=== PATIENT | male | born 1995 | race Two or more races ===

== ENCOUNTER → 2024-05-16 | Outpatient (CLI) | payer BC, SELFPAY ==
--- NOTE | 2024-05-16 | XR_ITS ---
Examination: Breast ultrasound, unilateral, right Date and time of exam: May 08, 2024 1210 hours INDICATIONS: Patient states retroareolar lump 2 years tendon attaches Technique: Real-time gatica scale ultrasonographic imaging performed right breast including all 4 quadrants as well as nipple retroareolar and axillary region. Findings: Probably benign retroareolar glandular tissue IMPRESSION: BI-RADS Category 3: Probably benign findings One additional 3-6 month bilateral breast sonography follow-up recommended
== END | disposition home or self-care (01) ==
PROVIDERS: PCP Registered Nurse; Referring Provider Registered Nurse; Visit Provider Registered Nurse
DX: R92.8 Other abnormal and inconclusive findings on diagnostic imaging of breast (principal)
CPT/HCPCS: 76641

== ENCOUNTER → 2024-07-07 | Outpatient (CLI) | payer BC, SELFPAY ==
[2024-07-07 13:56] LABS: Collection Type, Urine Clean Catch; Squamous Epithelial Cell,Urine 0 /hpf (0-5)
[2024-07-07 14:17] LABS: Basophils % (Auto) 1 % (0-2.5); Eosinophils # (Auto) 0.3 Thou/mm3 (0.0-0.5); Eosinophils % (Auto) 3 % (0-10); Hematocrit 44.2 % (41.0-53.0); Hemoglobin 15.9 g/dL (13.5-16.0); Immature Granulocytes % (Auto) 0 % (0-0); Immature Granulocytes Auto 0.03 Thou/mm3 (0.00-0.00); Lymphocytes # (Auto) 3.1 Thou/mm3 (1.0-4.8); Lymphocytes % (Auto) 37 % (10-50); Mean Corpuscular Hemoglobin 30.2 pg (25.0-35.0); Mean Corpuscular Volume 84 fL (80-100); Monocytes # (Auto) 0.5 Thou/mm3 (0.0-0.8); Monocytes % (Auto) 5 % (0-12); Neutrophils # (Auto) 4.5 Thou/mm3 (1.8-7.7); Neutrophils % (Auto) 54 % (37-80); Nucleated Red Blood Cell % 0 /100 WBC (0); Platelet Count 328 Thou/mm3 (140-440); RDW Standard Deviation 37.7 fL (35.1-43.9); Red Blood Count 5.26 Miln/mm3 (4.50-5.90); White Blood Count 8.4 Thou/mm3 (3.8-10.6)
[2024-07-07 14:27] LABS: Bilirubin,Urine Negative (Negative); Blood,Urine 1+ (Negative); Clarity,Urine Turbid (Clear/Hazy); Color,Urine Yellow (Lt Yel-Yel); Culture Indicated,Urine Yes; Glucose, Urine Negative (Negative); Ketones,Urine Negative (Negative); Leukocyte Esterase,Urine Positive (Negative); Nitrite,Urine Negative (Negative); Protein,Urine 1+ (Neg - Trace); RBC,Urine 14 /hpf (0-3); Specific Gravity,Urine 1.028 (1.001-1.035); Sperm,Urine Present; Urobilinogen,Urine Negative mg/dL (0.0-1.0); WBC,Urine 69 /hpf (0-5)
[2024-07-07 14:30] LABS: Glucose Estimated Average 108 mg/dL (80-131); Hemoglobin A1C 5.4 % Hgb (4.8-6.0)
[2024-07-07 14:41] LABS: Alanine Aminotransferase 33 U/L (10-49); Albumin, Serum 4.7 gm/dL (3.5-5.0); Albumin/Globulin Ratio 1.6 (1.2-2.2); Alkaline Phosphatase 68 U/L (46-116); Anion Gap 9 (7-16); Aspartate Amino Transferase 24 U/L (0-34); BUN/Creatinine Ratio 13 Ratio (12-20); Bilirubin,Total 0.6 mg/dL (0.3-1.2); Blood Urea Nitrogen 13 mg/dL (9-23); Calcium 9.4 mg/dL (8.3-10.6); Calcium (Corrected) 9.4 mg/dL (8.5-10.1); Carbon Dioxide 25.3 mMol/L (20.0-31.0); Cardiac Risk Estimate 3.1 RATIO (4.0-6.7); Chloride 106 mMol/L (98-107); Cholesterol 129 mg/dL (132-200); Glucose 92 mg/dL (74-106); HDL Cholesterol 42 mg/dL (40-60); LDL Cholesterol,Calculated 72 mg/dL (0-130); Osmolality,Calculated 279 (275-295); Potassium 3.9 mMol/L (3.4-5.1); Sodium 140 mMol/L (136-145); Thyroid Stimulating Hormone 0.89 uIU/mL (0.55-4.78); Total Protein 7.7 gm/dL (5.7-8.2); Triglycerides 76 mg/dL (30-150); eGFR > 60 See Note
[2024-07-07 14:44] LABS: Vitamin D 25 Hydroxy Total 31.4 ng/mL (7.3-40.2)
== END | disposition home or self-care (01) ==
LOC: COPL 13:35
PROVIDERS: PCP Family Medicine; Referring Provider Registered Nurse; Visit Provider Registered Nurse
DX: R79.89 Other specified abnormal findings of blood chemistry (principal)
CPT/HCPCS: 36415; 80053; 80061; 81001; 82306; 83036; 84443; 85025; 87086

== ENCOUNTER → 2024-07-25 | Outpatient (CLI) | payer BC, SELFPAY ==
--- NOTE | 2024-07-25 11:05 | XR_ITS ---
Examination: Breast ultrasound, unilateral, right complete Date and time of exam: July 25, 2024 1123 hours INDICATIONS: Right breast pain 2 years worse the last 2 months, probably benign retroareolar glandular tissue on right breast sonogram May 16, 2024 Technique: Real-time gatica scale ultrasonographic imaging performed right breast including all 4 quadrants as well as nipple retroareolar and axillary region. Findings: Posterior retroareolar nodule 6 x 5 mm circumscribed IMPRESSION: BI-RADS Category 3: Probably benign findings Continued 6 month right breast sonogram follow-up is needed
== END | disposition home or self-care (01) ==
LOC: CDIM 10:57
PROVIDERS: PCP Family Medicine; Referring Provider Registered Nurse; Visit Provider Registered Nurse
DX: N62 Hypertrophy of breast (principal)
CPT/HCPCS: 76641

== ENCOUNTER 2024-10-02 10:23 | Day surgery (SDC) | payer BC, SELFPAY ==
[2024-09-30 10:02] VITALS: BMI 31.4
[2024-09-30 11:26] LABS: Basophils # (Auto) 0.1 Thou/mm3 (0.0-0.2); Basophils % (Auto) 1 % (0-2.5); Eosinophils # (Auto) 0.4 Thou/mm3 (0.0-0.5); Eosinophils % (Auto) 7 % (0-10); Hematocrit 43.5 % (41.0-53.0); Hemoglobin 14.8 g/dL (13.5-16.0); Immature Granulocytes Auto 0.03 Thou/mm3 (0.00-0.00); Lymphocytes # (Auto) 2.7 Thou/mm3 (1.0-4.8); Lymphocytes % (Auto) 42 % (10-50); Mean Corpuscular HGB Conc 34.0 g/dl (31.0-37.0); Mean Corpuscular Hemoglobin 30.7 pg (25.0-35.0); Mean Corpuscular Volume 90 fL (80-100); Monocytes # (Auto) 0.5 Thou/mm3 (0.0-0.8); Monocytes % (Auto) 8 % (0-12); Neutrophils # (Auto) 2.7 Thou/mm3 (1.8-7.7); Neutrophils % (Auto) 42 % (37-80); Nucleated Red Blood Cell # 0.00 Thou/mm3 (0.00-0.00); Nucleated Red Blood Cell % 0 /100 WBC (0); Platelet Count 358 Thou/mm3 (140-440); RDW Standard Deviation 45.2 fL (35.1-43.9); Red Blood Count 4.82 Miln/mm3 (4.50-5.90); White Blood Count 6.5 Thou/mm3 (3.8-10.6)
[2024-09-30 11:30] LABS: Anion Gap 5 (7-16); BUN/Creatinine Ratio 16 Ratio (12-20); Blood Urea Nitrogen 14 mg/dL (9-23); Calcium 9.3 mg/dL (8.3-10.6); Carbon Dioxide 27.8 mMol/L (20.0-31.0); Chloride 106 mMol/L (98-107); Creatinine (Component) 0.9 mg/dL (0.6-1.3); Estimated Creatinine Clearance 132.2 mL/min (>60); Glucose 100 mg/dL (74-106); Osmolality,Calculated 278 (275-295); Potassium 4.0 mMol/L (3.4-5.1); Sodium 139 mMol/L (136-145); eGFR > 60 See Note
[2024-10-02] VITALS (7 sets, daily range): BP systolic 108–134; BP diastolic 71–80; PULSE 68–91; RESP 12–20; TEMP 36.6–36.9; O2SAT 95–97; BMI 31.1
[2024-10-02] MEDS: RINGERS LACTATED 1000 ML 1,000 ML 20 ML IV (11:04)
--- NOTE | 2024-10-02 12:58 | SUR.PHASEI ---
1258 Patient arrived to recovery resting comfortably in [facility], drowsy and talking with staff, breathing unlabored, vital signs stable, denies pain, dressing intact to right breast; dermabond, gauze, medipore tape, no bleeding noted, denies nausea, report received from Dr. Dale and Jody CANAS
--- NOTE | 2024-10-02 13:02 | ESOP_ITS ---
Date of Procedure 10/02/24 Pre Op Diagnosis Right breast mass Post Op Diagnosis Retroareolar right breast mass Procedure Right breast lumpectomy Findings An approximately 4 cm retroareolar right breast mass Procedure Description Patient brought into the operating room in supine position. After administration of general tracheal anesthesia, patient's right breast prepped and draped in standard surgical manner. After administration of local anesthesia an approximately 3 cm semicircular incision was made above the areolar complex. Circumferential flaps were raised. The underlying subareolar mass was circumferentially dissected out surrounding tissue and excised. The mass appeared to be hypertrophic breast tissue. The wound was washed and irrigated and hemostasis achieved using electrocautery. Deep soft tissue reapproximated with interrupted sutures using 2-0 Vicryl. Subcutaneous tissue closed with interrupted sutures using 3-0 Vicryl and the incision was closed with 4-0 Monocryl in subcuticular fashion. Dermabond and pressure sterile dressings applied. Patient tolerated procedure well. He was extubated, breathing spontaneously and without difficulty and was transferred to postanesthesia care in stable condition. Instruments, needles and sponge counts were reported to be correct x 2. Anesthesia GETA and local Pathology / specimen Other (Right breast mass) Estimated Blood Loss 10 Condition Stable Disposition PACU Surgeon Hilda Harper MD Surgical Staff Operation Date: 10/02/24 13:15 Case Staff Anesthesiologist: Tomasz Dale RNcontinuous improvement manager: Whitley Walker
[2024-10-02] MEDS: fentaNYL CIT INJ 50 mCg/ML AMP 2ML IVP (13:16)
--- NOTE | 2024-10-02 13:50 | SUR.PHASEII ---
1350 Report given to Azul Max RN, disconnecting patient from vital signs stable, disconnecting from monitor, breathing unlabored, per patient his pain is tolerable, dressing intact; no bleeding noted, denies nausea, discharge instructiosn given to patient and patients friend, friend signed discharge instructions.
--- NOTE | 2024-10-02 14:00 | SUR.PHASEII ---
1400: pt discharge to home via wheelchair. pt alert and oriented. dressing to right breast clean, dry and intact. no bleeding or discharge noted. surrounding area no swelling or redness noted. no s/s of resp. distress or discomfort. denies nay pain or discomfort.
== END 2024-10-02 14:00 | disposition home or self-care (01) ==
PROVIDERS: PCP Family Medicine; Referring Provider Surgery; Visit Provider Surgery
PROC: (CPT 19301; principal; 2024-10-02 13:00)
DX: N62 Hypertrophy of breast (principal)
CPT/HCPCS: 19300; 36415; 80048; 85025; A4217; A4649; J0690; J1100; J2704; J3010; J3490; J7120; Q9968